=== PATIENT | male | born 1995 | race Caucasian/White ===

== ENCOUNTER 2022-04-27 22:30 | Emergency (ER) | payer SELFPAY ==
[2022-04-27 22:31] VITALS: BP 155/81; PULSE 101; RESP 17; TEMP 36.8; O2SAT 98; BMI 27.4
--- NOTE | 2022-04-27 23:36 | ED_ITS ---
Discharge Plan Disposition Chief Complaint: Medical Clearance Referrals Follow up/Referrals: Provider,Referral, [Primary Care Provider] - See instructions Clinical Impressions Clinical Impression: Medical clearance for incarceration Discharge ED Provider: Isabela REBOLLEDO)Pardeep Medical Clearance HPI General Chief complaint: Medical Clearance Stated complaint: medical clearane Time Seen by Provider: 04/27/22 23:36 Mode of Arrival: Ambulatory Source of Information: Law Enforcement Limitations: No Limitations Description of Symptoms (Recalled from ER Triage Doc. by RN): pt to ED for medical clearence. pt denies any drug or alcohol use today. pt denies any pain or complaints at this time History of Present Illness HPI Narrative: pt with no specific c/o MD complaint: medical clearance requested Onset (ago): hour(s) Traumatic Symptoms: denies traumatic injury PFSH [facility] Disclaimer: The information contained in this section may have been updated after the patient was seen, as this information can be updated by other users. Social History Smoking Status: Heavy tobacco smoker alcohol intake: former current occupational status: unemployed Travel in the last 8 weeks: None ROS Obtained: Yes All systems reviewed & no additional complaints except as documented Physical Exam General General appearance: alert Head Head exam: normocephalic Eye Eye exam: Present PERRL and EOMI ENT ENT exam: Present mucous membranes moist Neck Neck exam: Absent trachea midline Respiratory Respiratory exam: Present normal lung sounds bilaterally Cardiovascular Cardiovascular exam: Present regular rate Abdominal Exam Abdominal exam: Present soft Extremities Exam Extremities exam: Present full ROM Neurological Exam Neurological exam: Present alert, oriented X3 and CN II-XII intact Skin Skin exam: Absent rash Medical Decision Making Medical Records Medical records reviewed: Yes I reviewed the patient's medical records. [place] Inquiry Pt receiving controlled substance: No Vital Signs: 04/27/22 22:31 Temperature 98.3 F Temperature Source Oral Pulse Rate [Left Radial] 101 H Respiratory Rate 17 Blood Pressure [Right Arm] 155/81 H Blood Pressure Mean [Right Arm] 105 Blood Pressure Source [Right Arm] Automatic Cuff Blood Pressure Position [Right Arm] Sitting 02 Sat by Pulse Oximetry 98 Oxygen Delivery Method Room Air Lab Data Lab results reviewed: Yes I reviewed the patient's lab results. Medical Decision Narrative: pt with stable exam and released to police Critical Care Time Critical Care Time Critical Care Time: No Attestation: On 04/27/22, the high probability of a clinically significant, sudden or life threatening deterioration of the following system(s) required my full and direct attention, intervention and personal management. The time I documented below is in addition to time spent performing reported procedures but includes the following listed in this critical care notation.
[2022-04-27 23:38] VITALS: BP 145/80; PULSE 89; RESP 20; TEMP 36.8; O2SAT 98
== END 2022-04-27 23:43 ==
PROVIDERS: Emergency Provider Emergency Medicine
DX: Z00.8 Encounter for other general examination (principal); F17.210 Nicotine dependence, cigarettes, uncomplicated
CPT/HCPCS: 99283